=== PATIENT | male | born 1965 | race Caucasian/White ===

== ENCOUNTER 2021-03-26 10:44 | Inpatient (IN) | payer MEDICAID ==
[~2021-03-26] VITALS: Ht 175.3 cm; Wt 72.3 kg
[2021-03-26] MEDS ORDERED: SODIUM CHLORIDE 0.9% 1,000 ML IV ONE (11:30)
[2021-03-26 11:41] LABS: HEMOGLOBIN. 10.5 g/dL (14.0-18.0); MEAN CORPUSCULAR HEMOGLOBIN 32.8 pg (28.0-32.0); MEAN CORPUSCULAR VOLUME 96.8 fL (80.0-94.0); MEAN PLATELET VOLUME 9.2 fl (7.4-10.4); PLATELET 147 x1000/uL (130-400); RED CELL DISTRIBUTION WIDTH 14.5 % (11.6-14.6)
[2021-03-26 11:48] LABS: CHLORIDE 114 mEq/L (98-107)
[2021-03-26 11:52] LABS: ETHANOL BLOOD < 10 mg/dL
[2021-03-26] MEDS ORDERED: PIPERACILLIN/TAZ 3.375G PREMIX 50 ML IV ONE (12:30)
[2021-03-26] MEDS ORDERED: VANCOMYCIN 1 G PREMIX 200 ML IV ONE (12:30)
[2021-03-26] MEDS ORDERED: SODIUM CHLORIDE 0.9% 1000ML BAG (SEPSIS BOLUS) IV ONE (12:30)
[2021-03-26 12:44] LABS: PLATELET ESTIMATE NORMAL
[2021-03-26] MEDS ORDERED: LIDOCAINE HCL 1% 20ML VIAL (Pyxis) INJ ONE (13:56)
[2021-03-26] MEDS ORDERED: ONDANSETRON HCL 4MG/2ML INJ IV PRN (14:00)
[2021-03-26] MEDS ORDERED: ACETAMINOPHEN 325MG TABLET PO PRN (14:00)
[2021-03-26] MEDS ORDERED: PIPERACILLIN/TAZOBACTAM 3.375 G in DEXTROSE 5% WATER 50 ML IV SCH (14:00)
[2021-03-26] MEDS: MIDODRINE HCL 5MG TABLET PO SCH ×2 (14:53→22:45)
[2021-03-26] MEDS ORDERED: SODIUM BICARBONATE 100 MEQ in DEXTROSE 5% WATER 1,000 ML IV SCH (15:00)
[2021-03-26] MEDS ORDERED: PIPERACILLIN/TAZOBACTAM 2.25 G in DEXTROSE 5% WATER 50 ML IV SCH (15:00)
[2021-03-26 16:44] LABS: CLARITY URINE CLOUDY (CLEAR); COLOR URINE YELLOW (YELLOW); KETONES URINE NEGATIVE (NEGATIVE); LEUKOCYTE ESTERASE URINE 2+ (NEGATIVE); NITRITE URINE NEGATIVE (NEGATIVE); OCCULT BLOOD URINE NEGATIVE (NEGATIVE); PROTEIN URINE 1+ (NEGATIVE); UROBILINOGEN URINE 0.2 E.U./dL (0.2-1.0)
[2021-03-26 17:00] LABS: *AMPHETAMINES SCREEN URINE NEGATIVE (NEGATIVE); *BARBITURATES SCREEN URINE NEGATIVE (NEGATIVE); *BENZODIAZEPINES SCREEN URINE PRESUMTIVE POSITIVE (NEGATIVE)
[2021-03-26 17:01] LABS: *COCAINE SCREEN URINE NEGATIVE (NEGATIVE); CANNABINOID URINE SCREEN NEGATIVE (NEGATIVE); METHADONE URINE SCREEN NEGATIVE (NEGATIVE); OPIATES URINE SCREEN NEGATIVE (NEGATIVE); PHENCYCLIDINE URINE SCREEN NEGATIVE (NEGATIVE)
[2021-03-26] MEDS: PIPERACILLIN/TAZOBACTAM 2.25 G in DEXTROSE 5% WATER 50 ML IV SCH (22:17)
[2021-03-27] MEDS: MIDODRINE HCL 5MG TABLET PO SCH ×2 (06:34→15:08)
[2021-03-27] MEDS: PIPERACILLIN/TAZOBACTAM 2.25 G in DEXTROSE 5% WATER 50 ML IV SCH ×2 (06:37→15:07)
[2021-03-27 09:04] LABS: BASOPHILS % 0.3 % (0.0-2.0); EOSINOPHILS % 3.4 % (0.0-5.0); HEMATOCRIT. 30.2 % (42.0-52.0); HEMOGLOBIN. 10.4 g/dL (14.0-18.0); LYMPHOCYTES % 7.2 % (20.0-50.0); MEAN CORPUSCULAR VOLUME 95.8 fL (80.0-94.0); MEAN PLATELET VOLUME 9.1 fl (7.4-10.4); MONOCYTES % 10.5 % (2.0-8.0); NEUTROPHILS % 78.6 % (40.0-76.0); PLATELET 168 x1000/uL (130-400); RED BLOOD CELL COUNT 3.15 mill/uL (4.7-6.1); RED CELL DISTRIBUTION WIDTH 14.2 % (11.6-14.6)
[2021-03-27] MEDS: SODIUM CHLORIDE 0.45% 1,000 ML IV SCH (12:12)
[2021-03-27 15:49] LABS: PHOSPHORUS 4.3 mg/dL (2.5-4.9)
[2021-03-27 23:00] VITALS: BP 111/72
[2021-03-28] VITALS: BP 111/72
[2021-03-28] MEDS: MIDODRINE HCL 5MG TABLET PO SCH ×4 (00:30→21:45)
[2021-03-28] MEDS: PIPERACILLIN/TAZOBACTAM 2.25 G in DEXTROSE 5% WATER 50 ML IV SCH ×4 (01:02→21:45)
[2021-03-28] MEDS: SODIUM CHLORIDE 0.45% 1,000 ML IV SCH ×2 (01:02→13:35)
[2021-03-28 04:00] VITALS: BP 123/72
[2021-03-28 07:59] VITALS: BP 107/60
[2021-03-28 11:36] VITALS: BP 123/70
[2021-03-28 16:11] VITALS: BP 116/77
[2021-03-28 20:00] VITALS: BP 114/65
[2021-03-29] VITALS: BP 122/77
[2021-03-29] MEDS: SODIUM CHLORIDE 0.45% 1,000 ML IV SCH (03:21)
[2021-03-29 04:00] VITALS: BP 128/80
[2021-03-29] MEDS: MIDODRINE HCL 5MG TABLET PO SCH ×2 (05:08→13:46)
[2021-03-29] MEDS: PIPERACILLIN/TAZOBACTAM 2.25 G in DEXTROSE 5% WATER 50 ML IV SCH ×2 (05:08→13:51)
[2021-03-29 05:22] LABS: BASOPHILS % 0.4 % (0.0-2.0); EOSINOPHILS % 3.7 % (0.0-5.0); HEMOGLOBIN. 9.3 g/dL (14.0-18.0); LYMPHOCYTES % 18.1 % (20.0-50.0); MEAN CORPUSCULAR HEMOGLOBIN 32.3 pg (28.0-32.0); MEAN CORPUSCULAR VOLUME 97.1 fL (80.0-94.0); MEAN PLATELET VOLUME 9.2 fl (7.4-10.4); MONOCYTES % 11.1 % (2.0-8.0); NEUTROPHILS % 66.7 % (40.0-76.0); PLATELET 174 x1000/uL (130-400); RED BLOOD CELL COUNT 2.88 mill/uL (4.7-6.1); RED CELL DISTRIBUTION WIDTH 14.1 % (11.6-14.6)
[2021-03-29 08:00] VITALS: BP 129/75
[2021-03-29] MEDS ORDERED: CEPH500C2 MT (11:39)
[2021-03-29 12:00] VITALS: BP 131/76
[2021-03-29 13:57] VITALS: BP 131/76
== END 2021-03-29 15:35 | disposition home or self-care (01) | DRG 720 ==
LOC: ER 10:44 → MICUSO 17:23 → 6WST 03-27 19:28
PROVIDERS: ADMIT Internal Medicine; ATTEND Internal Medicine
PROC: 02HV33Z Insertion of Infusion Device into Superior Vena Cava, Percutaneous Approach (ICD-10-PCS; principal; 2021-03-26)
PROC: B548ZZA Ultrasonography of Superior Vena Cava, Guidance (ICD-10-PCS; 2021-03-26)
DX: A41.50 Gram-negative sepsis, unspecified (principal); N17.0 Acute kidney failure with tubular necrosis; R65.21 Severe sepsis with septic shock; E43 Unspecified severe protein-calorie malnutrition; E87.2 Acidosis; J18.9 Pneumonia, unspecified organism; E87.8 Other disorders of electrolyte and fluid balance, not elsewhere classified; D64.9 Anemia, unspecified; E87.5 Hyperkalemia; N13.6 Pyonephrosis; Z20.822 Contact with and (suspected) exposure to COVID-19; F99 Mental disorder, not otherwise specified; I10 Essential (primary) hypertension; Z68.23 Body mass index [BMI] 23.0-23.9, adult
CPT/HCPCS: 36415; 36556; 71045; 76770; 76937; 80048; 80053; 80305; 80320; 81003; 82550; 83605; 83735; 83880; 84100; 84153; 84484; 85025; 87077; 87186; 93005; 97161; 99285; C1752; J2543; J3370; J3490; J7030; J7060; J7070; U0003; U0005; A4315; G0103; G0480